=== PATIENT | female | born 1990 | race Caucasian/White ===

== ENCOUNTER 2022-07-30 02:47 | Inpatient (IN) ==
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
[2022-07-30] MEDS ORDERED: LIDOCAINE 1% LOCAL 20 ML VIAL INFIL PRN (03:30)
[2022-07-30] MEDS ORDERED: OXYTOCIN 30 UNITS/500 ML BAG IV PRN ×2 (03:30→15:12)
[2022-07-30] MEDS ORDERED: PENICILLIN G POTASSIUM 6 MU in DEXTROSE 5% 250 ML IV STA (03:38)
[2022-07-30] MEDS: LACTATED RINGER'S 1,000 ML IV PRN ×2 (04:05→11:04)
--- NOTE | 2022-07-30 04:09 | Communication Note ---
Date of Service: July 30, 2022 They would prefer expectant management at this point. Will be 6 hours at 7am. Fetus category one with accels now.
[2022-07-30 04:30] LABS: Hematocrit (blood only) 33.1 % (37.0-47.0); Hemoglobin 11.5 g/dl (12.0-16.0); Mean Corpuscular Hemoglobin 30.7 pg (25.0-34.0); Mean Corpuscular Hgb Conc 34.7 g/dL (32.0-36.0); Mean Corpuscular Volume 88.5 fL (80.0-100.0); Mean Platelet Volume 11.1 fL (9.4-12.4); Platelet Count 256 K/uL (130-400); RDW Coefficient of Variation 14.1 % (11.5-14.5); RDW Standard Deviation 45.4 fL (36.4-46.3); Red Blood Count 3.74 M/uL (4.20-5.40); White Blood Count 14.19 K/ul (4.8-10.8)
[2022-07-30] MEDS ORDERED: BUPIVACAINE 0.25% PF 30 ML VIAL ONE (07:15)
[2022-07-30] MEDS ORDERED: SODIUM CHLORIDE 0.9% PF INJ 10 ML VIAL ONE (07:15)
[2022-07-30] MEDS ORDERED: ePHEDrine sulfate 50 MG/ML AMP ONE (07:15)
[2022-07-30] MEDS ORDERED: fentaNYL citrate PF 100 MCG/2 ML VIAL ONE (07:15)
[2022-07-30] MEDS ORDERED: fentaNYL 2MCG/ML ROPIVACAINE 1.25MG/ML 100 ML BAG EPI ONE (07:16)
[2022-07-30] MEDS ORDERED: LIDOCAINE 2%/EPINEPHRINE 1:200,000 20 ML PF ONE (07:16)
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
[2022-07-30] MEDS: PENICILLIN G POTASSIUM 3 MU in DEXTROSE 5% 100 ML IV PRN ×2 (08:02→12:14)
[2022-07-30] MEDS ORDERED: ONDANSETRON INJ 2 MG/ML 2 ML VIAL IV PRN (08:46)
[2022-07-30] MEDS ORDERED: NALOXONE HCL 0.4 MG/1 ML VIAL/CARP IV PRN (08:46)
[2022-07-30] MEDS ORDERED: ePHEDrine sulfate 50 MG/ML AMP IV PRN (08:46)
[2022-07-30] MEDS ORDERED: NALOXONE HCL 1 MG in SODIUM CHLORIDE 0.9% 1000ML 1,000 ML IV PRN (08:46)
[2022-07-30] MEDS ORDERED: fentaNYL 2MCG/ML ROPIVACAINE 1.25MG/ML 100 ML BAG EPI PRN (08:46)
--- NOTE | 2022-07-30 15:08 | Delivery Summary ---
Vaginal Delivery Summary Date of Service July 30, 2022 Vaginal Delivery Summary Spontaneous vaginal delivery the patient presented with premature rupture of membranes at term was admitted by Dr. Olivares requested epidural progressed to fully dilated and then pushed delivering a baby over occiput anterior position fluid was clear no nuchal cord gentle traction on the baby no excessive force easy delivery live vigorous female cord clamped and cut cord blood obtained placenta removed with traction second-degree tear repaired with 3-0 Vicryl estimated blood loss 250 mL Pitocin was started after delivery of the placenta sponge and instrument counts correct
[2022-07-30] MEDS ORDERED: bisacodyL 10 MG SUPP PR PRN (15:12)
[2022-07-30] MEDS ORDERED: HYDROCORTISONE ACETATE 25 MG SUPP PR PRN (15:12)
[2022-07-30] MEDS ORDERED: DIPHTHERIA/TETANUS/PERTUSSIS 0.5mL SYR/VIAL (Age 7+yrs) IM ONE (15:12)
[2022-07-30] MEDS ORDERED: ACETAMINOPHEN 325 MG TAB PO PRN (15:12)
[2022-07-30] MEDS ORDERED: BENZOCAINE 20% AER SPR 82.5 GM CAN EXT PRN (15:12)
[2022-07-30] MEDS ORDERED: oxyCODONE/ACETAMINOPHEN 5mg/325mg TAB PO PRN (15:12)
--- NOTE | 2022-07-30 16:15 | Anesthesia Procedure Note ---
Date of Service July 30, 2022 Anesthesia Post Epidural Note Vital Signs Vital Signs: Temp Pulse Resp BP Pulse Ox 38.6 C H 77 16 132/76 97 07/30/22 10:30 07/30/22 16:01 07/30/22 15:50 07/30/22 16:01 07/30/22 15:30 Notes Mental Status: alert / awake / arousable and participated in evaluation Nausea / Vomiting: adequately controlled Pain: adequately controlled Airway Patency, RR, SpO2: stable & adequate BP & HR: stable & adequate Hydration State: stable & adequate Neuraxial Anesthesia: was administered and sensory block is resolving Anesthetic Complications: no major complications apparent Epidural: Removed without complications and With tip intact
[2022-07-30] MEDS: IBUPROFEN 600 MG TAB PO PRN ×2 (17:47→22:17)
[2022-07-30] MEDS: DOCUSATE SODIUM 100 MG CAP PO SCH (20:05)
[2022-07-30] MEDS ORDERED: Nursing to Pharmacy Communication SCH (23:15)
[2022-07-30] MEDS ORDERED: ESCITALOPRAM OXALATE 10 MG TAB PO SCH (23:45)
[2022-07-31] MEDS: ESCITALOPRAM OXALATE 10 MG TAB PO SCH ×2 (01:17→19:42)
[2022-07-31] MEDS: IBUPROFEN 600 MG TAB PO PRN ×4 (02:20→19:41)
[2022-07-31 06:22] LABS: Hematocrit (blood only) 30.8 % (37.0-47.0); Hemoglobin 10.7 g/dl (12.0-16.0); Mean Corpuscular Hemoglobin 30.6 pg (25.0-34.0); Mean Corpuscular Hgb Conc 34.7 g/dL (32.0-36.0); Mean Platelet Volume 10.7 fL (9.4-12.4); Platelet Count 248 K/uL (130-400); RDW Coefficient of Variation 14.2 % (11.5-14.5); RDW Standard Deviation 45.4 fL (36.4-46.3); White Blood Count 16.45 K/ul (4.8-10.8)
--- NOTE | 2022-07-31 07:34 | Obstetrical Progress Note ---
Date of Service July 31, 2022 Assessment & Plan (1) state: day #1 from vaginal delivery patient is doing well ambulating no extremity pain we will continue current care Subjective Ambulation: ambulating normally Voiding: no voiding problems Passing Gas:: Yes Diet Tolerance:: regular diet Lochia:: Small Constitutional: + as per Subjective / HPI Physical Exam Constitutional WD/WN, vitals as above well developed and well nourished Respiratory normal respiratory effort, lungs clear to auscultation normal respiratory effort Cardiovascular RRR, no murmur, no edema Gastrointestinal (Abdomen) normal bowel sounds, soft, nontender, no hepatosplenomegaly Results & Data Vital Signs (Past 12 Hours) Vital Signs Temp Pulse Resp BP Pulse Ox O2 Del Method 07/31/22 03:00 98.1 F 72 18 119/77 97 Room Air 07/30/22 20:00 98.6 F 87 16 117/76 97 Room Air 07/30/22 23:11 98.1 F 71 18 136/85 99 Room Air
[2022-07-31] MEDS: DOCUSATE SODIUM 100 MG CAP PO SCH ×2 (07:47→19:41)
[2022-07-31] MEDS: PRENATAL VITAMIN 1 TAB PO SCH (07:47)
[2022-07-31] MEDS ORDERED: ESCITALOPRAM OXALATE 10 MG TAB PO SCH (09:00)
[2022-07-31] MEDS ORDERED: bisacodyL 5 MG TABEC PO SCH (20:00)
[2022-08-01] MEDS: IBUPROFEN 600 MG TAB PO PRN (04:01)
--- NOTE | 2022-08-01 07:03 | Obstetrical Progress Note ---
Date of Service <Jaime Glaser DO - Last Filed: 08/01/22 07:33> August 01, 2022 Assessment & Plan <Jaime Glaser DO - Last Filed: 08/01/22 07:33> (1) state: - Feels well today. Eating well, voiding well, ambulating well. - Pain well controlled with ibuprofen 600mg Q4H PRN - Routine care -- OOB, ambulation, diet progression as tolerated - After discharge will have 6 week follow-up. - Will discharge today. Day #:: 2 <Pattie Tripathi MD, FACOG - Last Filed: 08/01/22 07:38> (1) state: Subjective <Jaime Glaser DO - Last Filed: 08/01/22 07:33> Ambulation: ambulating normally Voiding: no voiding problems Passing Gas:: Yes Diet Tolerance:: regular diet Lochia:: Small Feeding Type:: breast feeding (breast and bottle ) Current Pain Level(1-10): 0 Review of Systems Denies fever, chills, sweats Denies shortness of breath, difficulty breathing, chest pain, palpitations, chest pressure. Denies breast pain. Denies dysuria. Denies headache or changes in vision. Physical Exam <Jaime Glaser DO - Last Filed: 08/01/22 07:33> General: Alert, oriented. No acute distress. Cardiac: Regular rate and rhythm, no murmurs/rubs/gallops. Respiratory: Clear to auscultation bilaterally a/p, no wheezes/rales/rhonchi. No increased work of breathing. Symmetrical chest rise. No respiratory distress. Abdomen: Soft, nontender, nondistended. Bowel sounds present. Uterus: Uterine fundus firm Lower Extremities: No lower extremity edema or swelling. No deep calf pain. Albina's negative bilaterally. Results & Data <Jaime Glaser - Last Filed: 08/01/22 07:33> Vital Signs (Past 12 Hours) Vital Signs Temp Pulse Resp BP Pulse Ox O2 Del Method 07/31/22 23:43 36.8 C 80 16 132/83 97 Room Air 07/31/22 19:27 36.8 C 72 16 117/70 97 Room Air <Pattie Tripathi MD, FACOG - Last Filed: 08/01/22 07:38> Co-Signing Physician Notes Resident Physician Supervision Note: I was present with Dr. Forbes during the history and exam. I discussed the case with the resident and agree with the findings and plan as documented in the note. Any exceptions or clarifications are listed here: [None] Documented By: Pattie Tripathi MD, FACOG Resident Activity Tracking <Jaime Glaser DO - Last Filed: 08/01/22 07:33> Resident Involvement: Resident Care Provided Care Provided: OB Delivery
[2022-08-01 07:04] LABS: Hematocrit (blood only) 28.8 % (37.0-47.0); Hemoglobin 9.9 g/dl (12.0-16.0)
[2022-08-01] MEDS: PRENATAL VITAMIN 1 TAB PO SCH (08:18)
[2022-08-01] MEDS: DOCUSATE SODIUM 100 MG CAP PO SCH (08:18)
== END 2022-08-01 11:59 | disposition home or self-care (01) | DRG 807 ==
LOC: OPB 02:47 → 4S1 02:50 → 4E2 17:36